=== PATIENT | male | born 1960 | race Two or more races ===

== ENCOUNTER 2025-02-12 06:15 | Inpatient (IN) | payer MEDICARE, MEDICAID ==
[2025-02-07 12:21] LABS: Hematocrit 46.0 % (41.0-53.0); Hemoglobin 15.7 g/dL (13.5-17.5); Mean Corpuscular Hemoglobin 32.0 pg (28.0-32.0); Mean Corpuscular Volume 93.7 fL (80.0-100.0); Nucleated Red Blood Cells % 0.2 %
[2025-02-07 12:42] LABS: INR 0.99 (0.9-1.15); Partial Thromboplastin Time 29.2 SEC (24.5-34.5); Prothrombin Time 10.5 sec (9.3-11.8)
[2025-02-07 13:09] LABS: Urine Protein, UAD Negative (Negative)
[2025-02-07 13:27] LABS: Albumin 4.6 g/dL (3.2-4.8); Alkaline Phosphatase 87 U/L (46-116); Anion Gap 6 (5-15); BUN/Creatinine Ratio 17.4 (10.0-20.0); Bilirubin, Total 0.5 mg/dL (0.2-1.0); Blood Urea Nitrogen 15 mg/dL (9-23); Calcium 9.4 mg/dL (8.7-10.4); Carbon Dioxide 28 mmol/L (20-31); Chloride 107 mmol/L (98-107); Glucose 79 mg/dL (74-106); Potassium 4.0 mmol/L (3.5-5.1); Sodium 141 mmol/L (136-145); Total Protein 7.1 g/dL (5.7-8.2)
[2025-02-07 13:34] LABS: Alanine Aminotransferase < 9 U/L (7-40)
[2025-02-12] VITALS (10 sets, daily range): BP systolic 122–144; BP diastolic 73–83; PULSE 64–78; RESP 9–18; TEMP 97.6–97.9; O2SAT 92–96
[~2025-02-12] VITALS: Ht 175.3 cm; Wt 84.5 kg
[~2025-02-12 06:15] MED LIST: ALBU0.084 IN; AML5T PO; ASPI1TAB20 PO; ATOR10TA PO; CLOP75TA28 PO; CYCL-837 PO; FLUT1AER3 IN; FOLI-119 PO; GABA-1308 PO; MELO7.5T7 PO; NITR0.4S29 SL; TRAM50TA2 PO
[2025-02-12] MEDS ORDERED: PROPOFOL 10 MG/ML 20 ML IV ONE (06:57)
[2025-02-12] MEDS ORDERED: MEPERIDINE HCL (25 MG/ML) 1ML VIAL ONE (06:57)
[2025-02-12] MEDS ORDERED: fentaNYL CITRATE 100 MCG/2 ML VL ONE (06:57)
[2025-02-12] MEDS: PREGABALIN CAPSULE 75 MG CAP PO ONE (07:00)
[2025-02-12] MEDS: ACETAMINOPHEN IV 1000 MG/100ML (10MG/ML) IV ONE (07:00)
[2025-02-12] MEDS: CELECOXIB 100 MG CAP PO ONE (07:00)
[2025-02-12] MEDS: ROPIVACAINE 0.5% (5MG/ML) 20ML AMPULE IJ ONE (07:04)
[2025-02-12] MEDS: ceFAZolin 2 GM/D5W50ml 50 ML IV ONE (07:17)
[2025-02-12] MEDS: CEFEPIME 1GM/50ML 50 ML IV ONE (07:25)
[2025-02-12] MEDS ORDERED: ONDANSETRON HCL 4 MG/2 ML VIAL ONE (07:26)
[2025-02-12] MEDS: ceFAZolin 1GM/50ML 50 ML IV SCH (07:30)
[2025-02-12] MEDS: LACTATED RINGER'S 1,000 ML IV SCH (07:30)
[2025-02-12] MEDS ORDERED: MORPHINE SULFATE INJ 2 MG/ml SYRG IV PRN (07:30)
[2025-02-12] MEDS ORDERED: NITROGLYCERIN 0.4 MG SL TAB SL PRN (07:30)
[2025-02-12] MEDS: TRANEXAMIC ACID 20 ML ONE (07:35)
[2025-02-12] MEDS: KETOROLAC TROMETH 30 MG/ML 1ML VIAL ONE (07:40)
[2025-02-12] MEDS: BUPIVACAINE 0.25% INJ 50ML VIAL ONE (07:40)
[2025-02-12] MEDS: VANCOMYCIN HCL 1000 MG VL ONE (07:40)
[2025-02-12] MEDS: MORPHINE SULF PF 5 MG/10 ML VIAL ONE (07:40)
[2025-02-12] MEDS ORDERED: MEPERIDINE HCL (25 MG/ML) 1ML VIAL IV PRN (09:15)
[2025-02-12] MEDS ORDERED: ONDANSETRON HCL 4 MG/2 ML VIAL IV PRN (09:15)
[2025-02-12] MEDS: HYDROmorphone HCL 2 MG/ML VL/or syr IV PRN ×2 (09:51→17:12)
--- NOTE | 2025-02-12 10:50 | DVH ---
EXAM: XY L KNEE 3V XRAY CLINICAL INDICATION: S/P SURGERY TECHNIQUE: XY L KNEE 3V XRAY Comparison: XR KNEE LEFT 3 VIEW on DOS: 11/30/24, KNEE LEFT ([id number]) on DOS: 08/25/24 FINDINGS/IMPRESSION: Status post Left total knee arthroplasty. Anatomic alignment
[2025-02-12] MEDS: GABAPENTIN 100 MG CAP PO SCH (12:14)
[2025-02-12] MEDS: DOCUSATE SOD 100 MG CAP PO SCH (12:15)
[2025-02-12] MEDS: ONDANSETRON HCL 4 MG/2 ML VIAL IV PRN (12:49)
[2025-02-12] MEDS ORDERED: ALBUTEROL SULF 2.5 MG/0.5ML(0.5%) NEB SOLN NEB SCH (14:00)
[2025-02-12] MEDS ORDERED: ALBUTEROL SULF 2.5 MG/0.5ML(0.5%) NEB SOLN NEB PRN (14:15)
[2025-02-12] MEDS: SODIUM CHLOR 0.9% PF (SALINE LOCK) 10ML VIAL/SYR IV SCH (15:25)
--- NOTE | 2025-02-12 16:40 | DVHOP2 ---
Operative Report - 2 Report Details Date: 02/12/25 Preop Diagnosis: Left knee osteoarthritis Postop Diagnosis: as above Surgeon: Ever Glynn MD Die Barber: Regan GAN Anesthesiologist: Shagufta NEIL Anesthesia: General, Regional Implant: [employer] Cemented PS Legion Size 7 Femur Size 6 Tibia 11 constraint poly 32 oval patella Consent: The patient was informed of the risks and benefits of the procedure. These include but are not limited to complications of anesthesia, postoperative infection, incomplete relief of symptoms, recurrence of symptoms, damage to blood vessels, nerves and tendons, deep venous thrombosis, pulmonary embolism and possible need for repeat surgery in the future. Estimated Blood Loss: 50 cc Name of Procedure Performed Left total knee arthroplasty using computer navigation Procedure Details Procedure Details: FINDINGS: degenerative disease with grade IV changes with significant varus and flexion contracture deformity of 15 degrees/10 degrees INDICATION: This patient has failed non-operative treatments for knee arthritis and is now indicated for a total knee replacement. Preoperatively in the waiting area as well as in the office, I had a long discussion with the patient regardi ng the plan, the expected outcome, the risks, benefits, and alternatives of surgery. The risks include, but are not limited to, infection (which may require future surgery and removal of implants) , bleeding (which may require a transfusion), damage to nerves, arteries, veins, tendons, muscles and other adjacent structures. Also discussed the possibilities of intraoperative fractur es, implant loosening, heterotopic bone formation, and revision for variety of reasons, and medical complications etc. This was discussed at length and consent has been obtained. DESCRIPTION OF PROCEDURE: In the preoperative holding area, the consent was reviewed and the appropriate extremity was verified by the patient and marked with my initials. The patient was then transferred to the operating theatre. Appropriate anesthesia was induced. All bony prominences were well padded. A time out was performed verifying the side and site of surgery according to standard protocol. Preoperative antibiotics were given 10 minutes prior to tourniquet inflation. Tranexamic was given. A well padded thigh tourniquet was applied. The extremity was then prepped and draped in the usual sterile fashion. The extremity was exsanguinated and the tourniquet was inflated. We then made a mid-line incision, which we continued to the underlying capsular tissue. We performed a medial parapatellar arthrotomy. We periosteally exposed the proximal tibia, excised the anterior fat pad and synovium from the distal aspect of the femur. We then subluxed the patella and brought the knee up into flexion. The lateral meniscus, ACL, and PCL were released. We used the appropriate guide with attached computer navigation to secure the distal femoral cutting block to the femur with pins and completed the distal femoral cut in 0 degrees to the mechanical axis with an oscillating saw. We removed the distal femoral cutting block and turned our attention to the tibia. We used the extramedullary tibial alignment guide with computer navigation to secure the proximal tibial cutting block to the tibia with pins, setting it for a 1mm cut from the more involved side, medially and completed the proximal tibial cut. We then used the spacer block and alignment farzaneh to check the varus- valgus angle of our cuts and the extension gap. Patient noted to be tight medially that was tight so medial release done. The knee was then balanced in extension to varus/valgus stress. We marked our femoral anatomy, including Roberts's line and the epicondylar axis. Using that as a rotational guide, we used the sizing guide to size our femur properly, using a stylus to ensure there would be no notching. We then used the AP cutting guide to make our anterior and posterior cuts and chamfer cuts with an oscillating saw. We again checked the flexion and extension gaps and coronal balancing. Next, we sized our tibia and secured a baseplate with appropriate rotation with pins. We placed a trial femur in position and completed preparation of the notch with reamers and box osteotome and placed a trial notch in position. We used trials to choose our liner size and then placed the liner in place and reduced the knee. We used an oscillating saw to resurface the patella, and used a guide to choose the button size and completed patella preparation with the drill. We then placed a trial button in place. At this point, we checked our seven parameters: 1) Limb alignment 2) Extension 3) Flexion against gravity 4) Flexion stability 5) Varus-valgus balancing 6) Component rotation 7) Patella tracking We were satisfied with these and removed all trials with the exception of the baseplate. We completed preparation of the tibia with the appropriate reamer and keel impactor and then removed the baseplate. We placed a bone plug in the distal femur and then irrigated and dried all bony surfaces and injected our pain cocktail. Cement with antibiotics was hand-mixed on the back table. We thumb impacted cement into the proximal tibia, distal femur and patella and impacted our tibial, femoral and patellar components into position. Excess cement was removed with curettes. We impacted our liner and reduced the knee and held it with axial loading until all cement hardened. We did a keny- articular cocktail block with Exparel. Once all cement had hardened, we brought the knee back up into flexion and used an osteotome to remove excess cement. We released the tourniquet and achieved hemostasis where necessary. A dilute betadine solution (17.5mL in 500mL saline) was used to wash the joint and left to sit for 3 minutes. This was then irrigated out with copious amounts of pulse lavage. We sprinkled 1g vancomycin powder below the fascia and 1g above the fascia. We copiously irrigated the knee. We re-checked our seven parameters. We closed our capsular incision with a PDS style suture. We irrigated further. We closed the subcutaneous tissue with Vicryl suture and re-approximated the skin with [place]. We verified all lower extremity compartments were soft and compressible and that we had intact distal pulses. We wrapped the extremity in sterile Webril and nevaeh bandage. The patient was transferred to the recovery room in stable condition. Condition Good Disposition Still a Patient EVER GLYNN MD Feb 12, 2025 16:40
[2025-02-13] VITALS (9 sets, daily range): BP systolic 122–143; BP diastolic 69–83; PULSE 63–84; RESP 17–20; TEMP 97.5–98.7; O2SAT 95–100
[2025-02-13] MEDS: CALCIUM CARB 500 MG CHEW TAB PO ONE (04:32)
[2025-02-13] MEDS: OXYCODONE W/ ACETAMINOPHEN 5/325MG TABLET PO PRN (06:04)
[2025-02-13 07:16] LABS: Hematocrit 37.1 % (41.0-53.0); Hemoglobin 12.7 g/dL (13.5-17.5)
[2025-02-13 07:32] LABS: Alanine Aminotransferase < 9 U/L (7-40); Albumin 4.1 g/dL (3.2-4.8); Alkaline Phosphatase 71 U/L (46-116); Anion Gap 8 (5-15); BUN/Creatinine Ratio 15.5 (10.0-20.0); Bilirubin, Total 0.6 mg/dL (0.2-1.0); Blood Urea Nitrogen 13 mg/dL (9-23); Calcium 9.3 mg/dL (8.7-10.4); Carbon Dioxide 29 mmol/L (20-31); Chloride 104 mmol/L (98-107); Glucose 110 mg/dL (74-106); Potassium 4.3 mmol/L (3.5-5.1); Sodium 141 mmol/L (136-145); Total Protein 6.2 g/dL (5.7-8.2)
[2025-02-13] MEDS: CEFEPIME 1GM/50ML 50 ML IV SCH (08:10)
[2025-02-13] MEDS: ASPirin-EC 81 mg tab PO SCH (08:11)
[2025-02-13] MEDS: CLOPIDOGREL BISULFATE 75 MG TAB PO SCH (08:11)
--- NOTE | 2025-02-13 17:47 | DVHHP2 ---
History of Present Illness Reason for Visit: Left knee arthroplasty History of Present Illness Came for elective surgery Cardiovascular: CAD, HTN Family History: None Review of Systems Allergies: Coded Allergies: NO KNOWN ALLERGIES (Unverified , 02/07/25) Medications Current Medications Medications Dose Ordered Sig/Atul Route Start Time Stop Time Status Last Admin Dose Admin Clopidogrel Bisulfate 75 mg DAILY PO 02/13/25 10:00 02/13/25 08:11 75 MG Gabapentin 300 mg DAILY PO 02/12/25 10:00 02/13/25 08:10 300 MG Amlodipine Besylate 5 mg DAILY PO 02/12/25 10:00 02/13/25 08:17 5 MG Aspirin 81 mg DAILY PO 02/13/25 10:00 02/13/25 08:11 81 MG Lactated Ringer's 1,000 ml @ 100 mls/hr Q10H IV 02/12/25 07:30 02/13/25 13:52 100 MLS/HR Sodium Chloride 10 ml Q8HR IV 02/12/25 14:00 02/13/25 13:51 10 ML Oxycodone/ Acetaminophen 1 tab Q4HP PRN PO 02/12/25 07:30 02/13/25 17:22 1 TAB Hydromorphone HCl 1 mg Q2HP PRN IV 02/12/25 07:30 02/13/25 13:56 1 MG Oxycodone HCl 10 mg Q12HR PO 02/12/25 10:00 02/13/25 09:37 10 MG Ondansetron HCl 4 mg Q6HP PRN IV 02/12/25 07:30 02/12/25 12:49 4 MG Docusate Sodium 100 mg Q12HR PO 02/12/25 10:00 02/13/25 08:10 100 MG Nitroglycerin 0.4 mg Q5MINP PRN SL 02/12/25 07:30 Morphine Sulfate 2 mg Q30M PRN IV 02/12/25 07:30 Cefepime HCl 50 ml @ 12.5 mls/hr DAILY IV 02/13/25 10:00 02/13/25 08:10 12.5 MLS/HR Albuterol 2.5 mg TIDPRN PRN NEB 02/12/25 14:15 Exam Vital Signs Vital Signs Date Time Temp Pulse Resp B/P (MAP) Pulse Ox O2 Delivery O2 Flow Rate FiO2 12/2/25 14:26 65 16 130/74 02/13/25 13:00 97.5 98 97.5 02/13/25 08:00 Room Air* 0 21 General Appearance: Alert, Oriented X3, Cooperative HEENT: Atraumatic Respiratory: Clear to auscultation Cardiovascular: Regular rate, Normal S1, Normal S2 Abdominal: Normal bowel sounds Labs/Xrays Labs Test 02/13/25 05:06 02/07/25 12:05 Range/Units Hemoglobin 12.7 #L 13.5-17.5 g/dL Hematocrit 37.1 #L 41.0-53.0 % Sodium Level 141 136-145 mmol/L Potassium Level 4.3 3.5-5.1 mmol/L Chloride Level 104 98-107 mmol/L Carbon Dioxide Level 29 20-31 mmol/L Anion Gap 8 5-15 Blood Urea Nitrogen 13 9-23 mg/dL Creatinine 0.84 0.700-1.30 mg/dL Glomerular Filtration Rate Calc 99 >90 mL/min BUN/Creatinine Ratio 15.5 10.0-20.0 Serum Glucose 110 H 74-106 mg/dL Calcium Level 9.3 8.7-10.4 mg/dL Total Bilirubin 0.6 0.2-1.0 mg/dL Aspartate Amino Transferase (AST) 16 13-40 U/L Alanine Aminotransferase (ALT) < 9 7-40 U/L Alkaline Phosphatase 71 46-116 U/L Total Protein 6.2 5.7-8.2 g/dL Albumin 4.1 3.2-4.8 g/dL White Blood Count 7.4 4.4-10.8 10^3/uL Red Blood Count 4.91 4.5-5.90 10^6/uL Mean Corpuscular Volume 93.7 80.0-100.0 fL Mean Corpuscular Hemoglobin 32.0 28.0-32.0 pg Mean Corpuscular Hemoglobin Concent 34.2 32.0-36.0 g/dL Red Cell Distribution Width 13.7 11.8-14.3 % Platelet Count 201 140-450 10^3/uL Mean Platelet Volume 9.4 6.9-10.8 fL Neutrophils (%) (Auto) 56.3 37.0-80.0 % Lymphocytes (%) (Auto) 26.4 10.0-50.0 % Monocytes (%) (Auto) 8.3 0.0-12.0 % Eosinophils (%) (Auto) 7.7 H 0.0-7.0 % Basophils (%) (Auto) 1.3 0.0-2.0 % Neutrophils # (Auto) 4.2 1.6-8.6 10 ^3/uL Lymphocytes # (Auto) 2.0 0.4-5.4 10 ^3/uL Monocytes # (Auto) 0.6 0-1.3 10 ^3/uL Eosinophils # (Auto) 0.6 0-0.8 10 ^3/uL Basophils # (Auto) 0.1 0-0.2 10 ^3/uL Nucleated Red Blood Cells 0.2 % Prothrombin Time 10.5 9.3-11.8 sec Prothrombin Time INR 0.99 0.9-1.15 Activated Partial Thromboplast Time 29.2 24.5-34.5 SEC Urine Color Light-yellow Yellow Urine Clarity Clear Clear Urine pH 6.0 5.0-9.0 Urine Specific [place] 1.012 1.001-1.035 Urine Protein Negative Negative Urine Ketones Negative Negative Urine Blood Negative Negative /uL Urine Nitrite Negative Negative Urine Bilirubin Negative Negative Urine Urobilinogen Normal Negative mg/dL Urine Leukocyte Esterase Negative Negative /uL Urine RBC 1 0 - 3 /hpf Urine Microscopic WBC 0-3 /HPF Urine Squamous Epithelial Cells None seen <5 /hpf Urine Bacteria None seen None Seen /hpf Urine Glucose Normal Normal mg/dL SEPSIS Sepsis Screen Vital Signs Date Time Temp Pulse Resp B/P (MAP) Pulse Ox O2 Delivery O2 Flow Rate FiO2 02/13/25 14:26 65 16 130/74 02/13/25 13:56 65 17 134/76 02/13/25 13:00 97.5 65 17 134/76 (95) 98 97.5 Medications Medications Dose Ordered Sig/Atul Route Start Time Stop Time Status Last Admin Dose Admin Aspirin 81 mg DAILY PO 02/13/25 10:00 02/13/25 08:11 81 MG Cefepime HCl 50 ml @ 12.5 mls/hr DAILY IV 02/13/25 10:00 02/13/25 08:10 12.5 MLS/HR Clopidogrel Bisulfate 75 mg DAILY PO 02/13/25 10:00 12/2/25 08:11 75 MG Assessment/Plan Assessment/Plan #s/p left knee arthroplasty #CAD #HTN Continue home medications PT eval pain control holding antiplatelets until ortho clears Plan discussed with: Patient Date of Service: Feb 13, 2025 Billing Provider: CELIA CASE MD Common Visit Codes: [id number] INP/OBS CARE (HIGH) CELIA CASE MD Feb 13, 2025 17:47
--- NOTE | 2025-02-13 20:09 | DVHPN2 ---
Progress Note Progress Note surgery: Left total knee arthroplasty DOS: 02/12/2025 S: Reports pain currently 4/10. Reports no acute events over night. Denies numbness/tingling. Denies CP/SOB/palpitations. Denies F/C O: Pt resting comfortably in bed. Examination of the Left knee reveals surgical dressing/provena CDI. Pt is able to dorsiflex and plantar flex toes and ankle (Gastroc, ant tib, peroneals). SILT over the sural, saphenous, tibial, deep and superficial peroneal nerve, medial and lateral plantar nerve distribution patterns. 2+ DP, BCR, euthermic A/P: S/p left total knee arthroplasty. The patient is doing well. Discussed with patient the importance of keeping knee straight when lying in bed and when not doing active knee flexion exercises. - Pt should continue to work with physical therapy for mobilization. - CPM setup during inpatient stay today -Ambulation: WBAT LLE with use of FWW for balance and assistance. -DVT proph: SCD, virgilio Corcoran per hospitalist protocol -Antibiotics: Abx completed today -Pain Management: per hospitalist The patient will be ready to be discharged once pain is controlled and cleared by PT Plan discussed with: Patient, Other (bedside nurse) Visit Coding Surgery Date of Service if different f: Feb 13, 2025 Billing Provider: ROBBIE JOHNSON Surgery Visit Codes: [id number] - INP CONSULT <55 MIN ROBBIE JOHNSON Feb 13, 2025 20:09
[2025-02-13] MEDS ORDERED: NICOTINE 14 MG/24HR TOPICAL PATCH TD ONE (21:30)
[2025-02-14] VITALS (10 sets, daily range): BP systolic 123–147; BP diastolic 69–94; PULSE 83–97; RESP 16–20; TEMP 97.3–99; O2SAT 91–98
[2025-02-14 05:42] LABS: Hematocrit 37.5 % (41.0-53.0); Hemoglobin 12.8 g/dL (13.5-17.5)
--- NOTE | 2025-02-14 07:41 | DVHDS2 ---
Discharge Summary Date of Admission Feb 12, 2025 at 07:28 Date of Discharge: Feb 14, 2025 Wounds: 1. You will likely have a gel-type dressing over your wound, you may keep this on for 7-14 days after leaving the hospital until your first post-op visit, unless it becomes soiled or your skin becomes irritated. If a wound vac dressing is placed on your knee this is to be left in place for one week and will be changed as needed. After your remove the dressing or wound vac, the home health nurse may place clean dry dressing over your wound. Keep wound covered, clean and dry for two weeks. 2. Sadaf will be removed during your initial post-op visit. If you have concerns about our wound, please call the office immediately. If nervous about staple removal can take pain pill one hour prior to appointment. 3. If there is drainage from your wound, change the dressing daily until it stops. If drainage lasts more than 10 days, call our office. 4. Low grade (up to 100 degrees) fever is common for the first week after surgery. You should take your temperature daily. If you have fevers of 101 or more, please call the office. Labs/Diagnostic Data: Laboratory Results Test 02/14/25 04:59 02/13/25 05:06 02/07/25 12:05 Hemoglobin 12.8 g/dL (13.5-17.5) Hematocrit 37.5 % (41.0-53.0) Sodium Level 141 mmol/L (136-145) Potassium Level 4.3 mmol/L (3.5-5.1) Chloride Level 104 mmol/L (98-107) Carbon Dioxide Level 29 mmol/L (20-31) Anion Gap 8 (5-15) Blood Urea Nitrogen 13 mg/dL (9-23) Creatinine 0.84 mg/dL (0.700-1.30) Glomerular Filtration Rate Calc 99 mL/min (>90) BUN/Creatinine Ratio 15.5 (10.0-20.0) Serum Glucose 110 mg/dL (74-106) Calcium Level 9.3 mg/dL (8.7-10.4) Total Bilirubin 0.6 mg/dL (0.2-1.0) Aspartate Amino Transferase (AST) 16 U/L (13-40) Alanine Aminotransferase (ALT) < 9 U/L (7-40) Alkaline Phosphatase 71 U/L (46-116) Total Protein 6.2 g/dL (5.7-8.2) Albumin 4.1 g/dL (3.2-4.8) White Blood Count 7.4 10^3/uL (4.4-10.8) Red Blood Count 4.91 10^6/uL (4.5-5.90) Mean Corpuscular Volume 93.7 fL (80.0-100.0) Mean Corpuscular Hemoglobin 32.0 pg (28.0-32.0) Mean Corpuscular Hemoglobin Concent 34.2 g/dL (32.0-36.0) Red Cell Distribution Width 13.7 % (11.8-14.3) Platelet Count 201 10^3/uL (140-450) Mean Platelet Volume 9.4 fL (6.9-10.8) Neutrophils (%) (Auto) 56.3 % (37.0-80.0) Lymphocytes (%) (Auto) 26.4 % (10.0-50.0) Monocytes (%) (Auto) 8.3 % (0.0-12.0) Eosinophils (%) (Auto) 7.7 % (0.0-7.0) Basophils (%) (Auto) 1.3 % (0.0-2.0) Neutrophils # (Auto) 4.2 10 ^3/uL (1.6-8.6) Lymphocytes # (Auto) 2.0 10 ^3/uL (0.4-5.4) Monocytes # (Auto) 0.6 10 ^3/uL (0-1.3) Eosinophils # (Auto) 0.6 10 ^3/uL (0-0.8) Basophils # (Auto) 0.1 10 ^3/uL (0-0.2) Nucleated Red Blood Cells 0.2 % Prothrombin Time 10.5 sec (9.3-11.8) Prothrombin Time INR 0.99 (0.9-1.15) Activated Partial Thromboplast Time 29.2 SEC (24.5-34.5) Urine Color Light-yellow (Yellow) Urine Clarity Clear (Clear) Urine pH 6.0 (5.0-9.0) Urine Specific [place] 1.012 (1.001-1.035) Urine Protein Negative (Negative) Urine Ketones Negative (Negative) Urine Blood Negative /uL (Negative) Urine Nitrite Negative (Negative) Urine Bilirubin Negative (Negative) Urine Urobilinogen Normal mg/dL (Negative) Urine Leukocyte Esterase Negative /uL (Negative) Urine RBC 1 /hpf (0 - 3) Urine Microscopic WBC /HPF (0-3) Urine Squamous Epithelial Cells None seen /hpf (<5) Urine Bacteria None seen /hpf (None Seen) Urine Glucose Normal mg/dL (Normal) Other Laboratory Tests 02/14/25 04:59 02/13/25 05:06 02/07/25 12:05 Brief Hx & Hospital Course: S/P LEFT TOTAL KNEE REPLACEMENT Condition at Discharge: Good (PATIENT IS ANXIOUS LIKELY SECONDARY TO NICOTINE WITHDRAWAL AND PAIN EXPECTED.) Final Diagnosis/Problems List as above Discharge Disposition: [facility]sp Facility Discharge Instruct/Medications Diet: Regular Diet comment: MAY ADVANCE DIET TOLERATED, DRINK PLENTY OF FLUIDS. AVOID ALCOHOL WHILE TAKING NARCOTICS. Activity: See Comment Activity comment: 1.CPM as ordered, goal is for 6 hours every day for the first 21 days of your recovery. Can break it up in to increments of 2-3 hours at a time. Most hospitals will start at 45 degrees of flexion, and increase by 5 degrees daily until the machine has been maxed out. The goal is to be at 90 degrees by first postop visit in 2 weeks. 2.No pool, jacuzzi, beach, gurrola or bath for 6 weeks. Once all scabbing has fallen off patient can begin soaking and submerging knee under water for 15-minute periods at a time. 3.Physical therapy is critical in the first 2 weeks. If having issues with scheduling please inform office. 4.No running or jumping for 6 weeks. 5.Can walk and bear as much weight on the surgical leg as tolerated. No restrictions in regards to walking or standing. Follow Up/Referral: 1.Driving is not permitted within the first 2 weeks. 2.Your first postoperative visit will take place 2 weeks after discharge. Please call the office once you are home from the hospital to arrange this appointment. 3.Antibiotic preventative treatment is required before dental or other invasive procedures. Please ask your surgeon about this at your first postoperative visit. If you experience chest pain, shortness of breath or severe painful calf swelling, go to the nearest emergency room to be evaluated. Please call our office once your situation is stabilized. Medications: 1.You will be discharged with pain medication, a blood thinner (unless you were previously on a blood thinner prior to surgery) and stool softener. Please follow the instructions regarding these medications as provided by your nurse at the hospital upon discharge. 2.Blood clots in the leg are a known complication of surgery. It is very important that you take the medication to protect against clots. Depending on what you are discharged on typically it is Lovenox 40mg daily for 2 weeks or Aspirin 81mg twice daily for 4 weeks. After you finish this, you should then take baby Aspirin (81mg) once daily for 2 weeks. 3.You should restart all of your prescription medications once discharged from the hospital/surgery center unless specifically instructed otherwise. 4.Herbal supplements may be restarted 2 weeks after surgery. 5.If you have been given Coumadin as a blood thinner, please follow up with your will call clerk during the first two weeks after surgery to review medications and overall medical well-being. 6.Please note that narcotic pain medication may cause constipation. Please remember to take stool softeners (Colace) when using narcotics to help reduce the change of constipation. You should not use alcohol together with narcotic medication. Scheduled Amlodipine Besylate (Norvasc Tablet), Unknown Dose PO DAILY, (Reported) Nitroglycerin (Ntrostat Sublingual), Unknown Dose SL PRN, (Reported) Miscellaneous Medications Albuterol Sulfate (Albuterol Sulfate), Unknown Dose IN, (Reported) Aspirin (Aspir-81), 81 MG PO, (Reported) Atorvastatin Calcium (Lipitor), Unknown Dose PO, (Reported) Clopidogrel Bisulfate (Plavix), Unknown Dose PO, (Reported) Cyclobenzaprine Hcl (Cyclobenzaprine Hcl), Unknown Dose PO, (Reported) Uvccvuiqyjz-Rsnxpvjjvbme-Zedyi (Trelegy Ellipta 100-62.5-25 Mcg/INH), Unknown Dose IN, (Reported) Folic Acid (Folic Acid), Unknown Dose PO, (Reported) Gabapentin (Gabapentin), Unknown Dose PO, (Reported) Meloxicam (Meloxicam), Unknown Dose PO, (Reported) Tramadol Hcl (Tramadol Hcl), Unknown Dose PO, (Reported) Discharge Statement: "Patient was advised to return to the ER or call 911 if any headaches, dizziness, shortness of breath, chest pain, abdominal pain, bleeding, fevers, or worsening of medical condition. Patient was counseled about treatment plan, medications, possible side effects, patientverbalized understanding. All questions were answered to the best of my ability. This discharge took greater then 30 minutes in planning, reviewing documentation, counseling the patient, and discussing with other team members." ASSESSMENT ASSESSMENT Assessment as above MARILYN DYKES NP Feb 14, 2025 07:41
[2025-02-14] MEDS: LORazepam 2MG/ML-1ML VIAL IV ONE (11:32)
--- NOTE | 2025-02-14 17:42 | DVHPN2 ---
Subjective Having pain but controlled Reviewed: H&P Changes from previous H/P or p: No Changes Objective Vitals Vital Signs Date Time Temp Pulse Resp B/P (MAP) Pulse Ox O2 Delivery O2 Flow Rate FiO2 02/14/25 16:56 97.3 95 16 144/87 (106) 97 97.3 02/14/25 09:26 Room Air* 0 21 Intake/Output Intake and Output 02/14/25 05:00 Intake Total 1320 ml Balance 1320 ml Intake Oral 1320 ml # Voids 7 # Bowel Movements 1 General Appearance: Alert, Oriented X3 HEENT: Atraumatic Cardiovascular: Regular rate, Normal S1, Normal S2 Abdomen: Normal bowel sounds Medications Current Medications Medications Dose Ordered Sig/Atul Route Start Time Stop Time Status Last Admin Dose Admin Clopidogrel Bisulfate 75 mg DAILY PO 02/13/25 10:00 02/14/25 09:49 75 MG Gabapentin 300 mg DAILY PO 02/12/25 10:00 02/14/25 09:48 300 MG Amlodipine Besylate 5 mg DAILY PO 02/12/25 10:00 02/14/25 09:48 5 MG Aspirin 81 mg DAILY PO 02/13/25 10:00 02/14/25 09:48 81 MG Lactated Ringer's 1,000 ml @ 100 mls/hr Q10H IV 02/12/25 07:30 02/14/25 01:54 100 MLS/HR Sodium Chloride 10 ml Q8HR IV 02/12/25 14:00 02/14/25 14:37 10 ML Oxycodone/ Acetaminophen 1 tab Q4HP PRN PO 02/12/25 07:30 02/14/25 01:53 1 TAB Hydromorphone HCl 1 mg Q2HP PRN IV 02/12/25 07:30 02/14/25 01:12 1 MG Oxycodone HCl 10 mg Q12HR PO 02/12/25 10:00 02/14/25 11:19 10 MG Ondansetron HCl 4 mg Q6HP PRN IV 02/12/25 07:30 02/14/25 11:19 4 MG Docusate Sodium 100 mg Q12HR PO 02/12/25 10:00 02/14/25 09:47 100 MG Nitroglycerin 0.4 mg Q5MINP PRN SL 02/12/25 07:30 Morphine Sulfate 2 mg Q30M PRN IV 02/12/25 07:30 Cefepime HCl 50 ml @ 12.5 mls/hr DAILY IV 02/13/25 10:00 02/14/25 11:20 12.5 MLS/HR Albuterol 2.5 mg TIDPRN PRN NEB 02/12/25 14:15 Laboratory Results Laboratory Tests 02/07/25 12:05 02/13/25 05:06 02/14/25 04:59 Urinalysis Test 02/07/25 12:05 Urine Color Light-yellow (Yellow) Urine Clarity Clear (Clear) Urine pH 6.0 (5.0-9.0) Urine Specific [place] 1.012 (1.001-1.035) Urine Protein Negative (Negative) Urine Ketones Negative (Negative) Urine Blood Negative /uL (Negative) Urine Nitrite Negative (Negative) Urine Bilirubin Negative (Negative) Urine Urobilinogen Normal mg/dL (Negative) Urine Leukocyte Esterase Negative /uL (Negative) Urine RBC 1 /hpf (0 - 3) Urine Microscopic WBC /HPF (0-3) Urine Squamous Epithelial Cells None seen /hpf (<5) Urine Bacteria None seen /hpf (None Seen) Urine Glucose Normal mg/dL (Normal) Assessment/Plan Assessment/Plan #s/p left knee arthroplasty #CAD #HTN Continue home medications PT eval>SNF pain control holding antiplatelets until ortho clears Plan discussed with: Patient Date of Service: Feb 14, 2025 Billing Provider: CELIA CASE MD Common Visit Codes: [id number] INP/OBS CARE(HIGH) CELIA CASE MD Feb 14, 2025 17:42
[2025-02-15] VITALS (8 sets, daily range): BP systolic 115–149; BP diastolic 71–89; PULSE 77–97; RESP 17–20; TEMP 37.4; O2SAT 91–96
[2025-02-15 05:26] LABS: Hematocrit 34.3 % (41.0-53.0); Hemoglobin 12.0 g/dL (13.5-17.5)
== END 2025-02-15 16:00 | disposition home or self-care (01) | DRG 470 ==
LOC: SUR 06:15 → OVERFLOW 07:28 → WEST WING 11:07
PROVIDERS: ADMIT Hospitalist; ATTEND Hospitalist
PROC: 8E0YXBZ Computer Assisted Procedure of Lower Extremity (ICD-10-PCS; 2025-02-12)
PROC: 0SRD0J9 Replacement of Left Knee Joint with Synthetic Substitute, Cemented, Open Approach (ICD-10-PCS; principal; 2025-02-12 07:17)
DX: M17.12 Unilateral primary osteoarthritis, left knee (principal); F17.203 Nicotine dependence unspecified, with withdrawal; I10 Essential (primary) hypertension; I25.10 Atherosclerotic heart disease of native coronary artery without angina pectoris
CPT/HCPCS: 36415; 73562; 80053; 81001; 85014; 85018; 85025; 85610; 85730; 86850; 86900; 86901; 97110; 97116; 97163; 97530; C1713; G0378; J0131; J1100; J1885; J2405; J2704; J3490